=== PATIENT | female | born 1955 | race Caucasian/White ===

== ENCOUNTER 2016-09-10 08:11 | Day surgery (SDC) | payer BC ==
--- NOTE | ~2016-09-10 | EGD ---
EGD REPORT [facility] [address] [id number] NAME: ALIREZA BOYLE : [birth year] [place]US : [place] [facility] [place] [id number] AGE: 60 ADM/REG DATE : 09/10/16 MR#: [id number] REPORT SERV DATE: 09/10/16 DICTATED BY: ELZA MUNOZ DATE: 09/10/16 REPORT STATUS : Draft TRANSCRIBED BY: [facility] DATE: 09/10/16 Endoscopy Center Patient Name: Alireza Boyle Date of : 1955 Attending MD: ELZA MUNOZ MD Procedure Date No Time: 09/10/2016 Procedure: Upper GI endoscopy Indications: Dysphagia, Gastro-esophageal reflux disease, Chest pain (non cardiac) Referring MD: CHIQUI OSEGUERA MD Medicines: Propofol per Anesthesia Complications: No immediate complications. Estimated blood loss: None. Procedure: Pre-Anesthesia Assessment: - After reviewing the risks and benefits, the patient was deemed in satisfactory condition to undergo the procedure. - Prior to the procedure, a History and Physical was performed, and patient medications and allergies were reviewed. The patient's tolerance of previous anesthesia was also reviewed. The risks and benefits of the procedure and the sedation options and risks were discussed with the patient. All questions were answered, and informed consent was obtained. Prior Anticoagulants: The patient has taken no previous anticoagulant or antiplatelet agents. ASA Grade Assessment: II - A patient with mild systemic disease. After reviewing the risks and benefits, the patient was deemed in satisfactory condition to undergo the procedure. After obtaining informed consent, the endoscope was passed under direct vision. Throughout the procedure, the patient's blood pressure, pulse, and oxygen saturations were monitored continuously. The GIF [id number] was introduced through the mouth, and advanced to the jejunum. The upper GI endoscopy was accomplished without difficulty. The patient tolerated the procedure well. Findings: Normal mucosa was found in the lower third of the esophagus. Biopsies were taken with a cold forceps for histology. Estimated blood loss: none. The gastroesophageal junction was normal. A guidewire was placed and the scope was withdrawn. Dilation was performed with a Savary dilator with mild resistance at 48 Fr. Estimated blood loss: none. Diffuse mild inflammation characterized by congestion (edema) was found in the gastric antrum. Biopsies were taken with a cold forceps for EGD REPORT [address] [address] NAME: ALIREZA BOYLE : [birth year] STATUS : REG [facility]#: [id number] AGE: 60 ADM/REG DATE : 09/10/16 MR#: [id number] REPORT SERV DATE: 09/10/16 DICTATED BY: ELZA MUNOZ DATE: 09/10/16 REPORT STATUS : Draft TRANSCRIBED BY: [facility] DATE: 09/10/16 histology. Estimated blood loss: none. A 2 cm hiatus hernia was present. The examined duodenum was normal. Biopsies were taken with a cold forceps for histology. Estimated blood loss: none. Impression: - Normal mucosa was found in the lower third of the esophagus. Biopsied. - Normal gastroesophageal junction. Dilated. - Gastritis. Biopsied. - Hiatus hernia. - Normal examined duodenum. Biopsied. - GERD. Recommendation: - Discharge patient to home (ambulatory). - Return to previous diet. - Continue present medications. - Change Protonix (omeprazole) to 40 mg daily before breakfast. - Use Pepcid AC 10 mg 1-2 at bedtime. - Await pathology results. - Perform a colonoscopy today. - Patient has a contact number available for emergencies. The signs and symptoms of potential delayed complications were discussed with the patient. Return to normal activities tomorrow. Written discharge instructions were provided to the patient. Procedure Code(s): --- Professional --- 74270, Esophagogastroduodenoscopy, flexible, transoral; with insertion of guide wire followed by passage of dilator(s) through esophagus over guide wire 44804, Esophagogastroduodenoscopy, flexible, transoral; with biopsy, single or multiple Diagnosis Code(s): --- Professional --- K29.70, Gastritis, unspecified, without bleeding K44.9, Diaphragmatic hernia without obstruction or gangrene K21.9, Gastro-esophageal reflux disease without esophagitis R13.10, Dysphagia, unspecified R07.89, Other chest pain CPT copyright 2013 [employer]. All rights reserved. The codes documented in this report are preliminary and upon mat inspector review may EGD REPORT [facility] [address] [address] NAME: ALIREZA BOYLE : [birth year] [place]US : [place] [facility] [place]#: [id number] AGE: 60 ADM/REG DATE : 09/10/16 MR#: [id number] REPORT SERV DATE: 09/10/16 DICTATED BY: ELZA MUNOZ DATE: 09/10/16 REPORT STATUS : Draft TRANSCRIBED BY: [employer] DATE: 09/10/16 be revised to meet current compliance requirements. ELZA MUNOZ MD 09/10/2016 9:48 AM This report has been signed electronically. Number of Addenda: 0 Note Initiated On: 09/10/2016 9:26 AM Scope Withdrawal Time 0 hours 0 minutes 0 seconds [facility] [address] [id number]
--- NOTE | ~2016-09-10 | EGD ---
EGD REPORT [facility] [address] [id number] NAME: ALIREZA BOYLE : 51 [place] : [place] [facility] [place]#: [id number] AGE: 60 ADM/REG DATE : 09/10/16 MR#: [id number] REPORT SERV DATE: 09/10/16 DICTATED BY: ELZA MUNOZ DATE: 09/10/16 REPORT STATUS : Draft [facility]ANSCRIBED BY: [facility] DATE: 09/10/16 Endoscopy Center Patient Name: Alireza Boyle Date of : 1955 Attending MD: ELZA MUNOZ MD Procedure Date No Time: 09/10/2016 Procedure: Colonoscopy Indications: FH of Colon Cancer - multiple second-degree relatives, Personal history of colonic polyps Referring MD: CHIQUI OSEGUERA MD Medicines: Propofol per Anesthesia Complications: No immediate complications. Estimated blood loss: None. Procedure: Pre-Anesthesia Assessment: - After reviewing the risks and benefits, the patient was deemed in satisfactory condition to undergo the procedure. - Prior to the procedure, a History and Physical was performed, and patient medications and allergies were reviewed. The patient's tolerance of previous anesthesia was also reviewed. The risks and benefits of the procedure and the sedation options and risks were discussed with the patient. All questions were answered, and informed consent was obtained. Prior Anticoagulants: The patient has taken no previous anticoagulant or antiplatelet agents. ASA Grade Assessment: II - A patient with mild systemic disease. After reviewing the risks and benefits, the patient was deemed in satisfactory condition to undergo the procedure. After I obtained informed consent, the scope was passed under direct vision. Throughout the procedure, the patient's blood pressure, pulse, and oxygen saturations were monitored continuously. The CF [id number] was introduced through the anus and advanced to the cecum, identified by appendiceal orifice and ileocecal valve. The colonoscopy was performed without difficulty. The ileocecal valve and appendiceal orifice were photographed. The patient tolerated the procedure well. The quality of the bowel preparation was adequate. The bowel preparation used was polyethylene glycol (PEG). Scope withdrawal time was 8 minutes. Findings: The perianal and digital rectal examinations were normal. Pertinent negatives include normal sphincter tone. Non-bleeding internal hemorrhoids were found during retroflexion and EGD REPORT [address] [address] NAME: ALIREZA BOYLE : [birth year] STATUS : REG [facility]#: [id number] AGE: 60 ADM/REG DATE : 09/10/16 MR#: [id number] REPORT SERV DATE: 09/10/16 DICTATED BY: ELZA MUNOZ DATE: 09/10/16 REPORT STATUS : Draft TRANSCRIBED BY: [facility] DATE: 09/10/16 were small. A few small-mouthed diverticula were found in the sigmoid colon. The exam was otherwise without abnormality. Impression: - Non-bleeding internal hemorrhoids. - Mild diverticulosis in the sigmoid colon. - The examination was otherwise normal. - Irritable bowel syndrome. Recommendation: - Discharge patient to home (ambulatory). - High fiber diet indefinitely. - Continue present medications including Benefiber daily. - Repeat colonoscopy in 5 years for screening purposes and for surveillance. - Patient has a contact number available for emergencies. The signs and symptoms of potential delayed complications were discussed with the patient. Return to normal activities tomorrow. Written discharge instructions were provided to the patient. Procedure Code(s): --- Professional --- 21607, Colonoscopy, flexible, proximal to splenic flexure; diagnostic, with or without collection of specimen(s) by brushing or washing, with or without colon decompression (separate procedure) Diagnosis Code(s): --- Professional --- K64.8, Other hemorrhoids K58.9, Irritable bowel syndrome without diarrhea K57.30, Diverticulosis of large intestine without perforation or abscess without bleeding Z80.0, Family history of malignant neoplasm of digestive organs Z86.010, Personal history of colonic polyps CPT copyright 2013 [employer]. All rights reserved. The codes documented in this report are preliminary and upon full time staff interpreter review may be revised to meet current compliance requirements. ELZA MUNOZ MD 09/10/2016 10:06 AM This report has been signed electronically. Number of Addenda: 0 EGD REPORT [facility] [address] [address] NAME: ALIREZA BOYLE : [birth year] [place]US : [place] [facility] [place]#: [id number] AGE: 60 ADM/REG DATE : 09/10/16 MR#: [id number] REPORT SERV DATE: 09/10/16 DICTATED BY: ELZA MUNOZ DATE: 09/10/16 REPORT STATUS : Draft TRANSCRIBED BY: [employer] DATE: 09/10/16 Note Initiated On: 09/10/2016 9:30 AM Scope Withdrawal Time 0 hours 8 minutes 2 seconds [address] [id number]
[~2016-09-10 08:11] MED LIST: ADVIL PO; ALLEGRA-D12 HOUR PO; AMIT10 PO; ASAB PO; B12100T PO; BENEFIBER PO; CO Q-10200 MG PO; FIBERCON PO; FISH-EPA1000 MG PO; HALF81 PO; LEXAPRO10 PO; MAX25 PO; METAMUCIL PO; METAMUCIL TABS PO; MIRALAXPKT PO; PEPCID COMPLETE PO; PRILOSEC40 MG PO; REFRESH OPH SO0.3 ML OPH; SYN1 PO; SYSTANE OPH; VITAMIN D1000 UNI1 PO; VITAMIN D31000 UNIT PO; VIVELLE SY0.1 MG/24 TOP; VIVELLE-DOT0.075 MG TOP; VIVELLE0.1 MG TD; X5 PO; [UNRECOGNIZED DRUG - REMARK]
== END 2016-09-10 23:59 | disposition home or self-care (01) ==
LOC: DMU 08:11
PROVIDERS: Internal Medicine Gastroenterology
PROC: 0DB68ZX Excision of Stomach, Via Natural or Artificial Opening Endoscopic, Diagnostic (ICD-10-PCS; 2016-09-10)
PROC: 0D748ZZ Dilation of Esophagogastric Junction, Via Natural or Artificial Opening Endoscopic (ICD-10-PCS; 2016-09-10)
PROC: 0DJD8ZZ Inspection of Lower Intestinal Tract, Via Natural or Artificial Opening Endoscopic (ICD-10-PCS; principal; 2016-09-10 09:30)
PROC: 0DB38ZX Excision of Lower Esophagus, Via Natural or Artificial Opening Endoscopic, Diagnostic (ICD-10-PCS; 2016-09-10 09:30)
PROC: 0DB98ZX Excision of Duodenum, Via Natural or Artificial Opening Endoscopic, Diagnostic (ICD-10-PCS; 2016-09-10 09:30)
DX: Z12.11 Encounter for screening for malignant neoplasm of colon (principal); Z80.0 Family history of malignant neoplasm of digestive organs; Z86.010 Personal history of colon polyps; K58.9 Irritable bowel syndrome, unspecified; K64.8 Other hemorrhoids; K57.30 Diverticulosis of large intestine without perforation or abscess without bleeding; K29.70 Gastritis, unspecified, without bleeding; K21.9 Gastro-esophageal reflux disease without esophagitis; K44.9 Diaphragmatic hernia without obstruction or gangrene; N30.10 Interstitial cystitis (chronic) without hematuria; E03.9 Hypothyroidism, unspecified; F41.9 Anxiety disorder, unspecified; F32.9 Major depressive disorder, single episode, unspecified; Z79.82 Long term (current) use of aspirin; Z79.818 Long term (current) use of other agents affecting estrogen receptors and estrogen levels; Z79.899 Other long term (current) drug therapy; Z87.891 Personal history of nicotine dependence; Z98.41 Cataract extraction status, right eye; Z98.42 Cataract extraction status, left eye; Z96.1 Presence of intraocular lens; Z90.710 Acquired absence of both cervix and uterus; Z90.49 Acquired absence of other specified parts of digestive tract
CPT/HCPCS: 88305; 88342